=== PATIENT | male | born 1955 | race Caucasian/White ===

== ENCOUNTER 2019-04-09 12:38 | Outpatient (CLI) | payer MEDICARE, BC ==
--- NOTE | 2019-04-09 13:46 | MRI ---
CERVICAL SPINE MRI WITHOUT CONTRAST: DATE: 04/09/2019. COMPARISON: None. HISTORY: Neck pain and bilateral hand numbness. TECHNIQUE: Multiplanar multisequence MR imaging of cervical spine without contrast. FINDINGS: The sagittal STIR imaging demonstrates no focal area of osseous marrow edema. There is mild degenerative change at the atlantoaxial interspace. The craniocervical junction is inta ct. No prevertebral soft tissue abnormality. No anterolisthesis or retrolisthesis seen within the cervical spine. C2-3: Mild facet and uncovertebral osteophyte formation on the left with no significant central canal or neural foraminal stenosis. C3-4: There is disc space narrowing and disc desiccation with minimal disc bulge. Facet and uncoverte bral osteophyte formation on the left causes a moderate degree of left neural foraminal stenosis. No significant central canal or right neural foraminal stenosis. C4-5: Mild facet hypertrophy on the left. No significant central canal or neural foraminal stenosis. C5-6: There is disc space narrowing, disc desiccation, and minimal disc bulge with partial effacement of the fifth ventral thecal sac. No significant central canal or neural foraminal stenosis. C6-7: There is disc space narrowing and disc desiccation with degenerative endplate change. No signif icant central canal stenosis. Bilateral mild facet and uncovertebral osteophyte formation with mild bilateral neural foraminal stenosis. C7-T1: Minimal anterolisthesis noted measuring in the 2 mm range. Mild bilateral facet hypertrophy wi th mild bilateral neural foraminal stenosis. No significant central canal stenosis. No focal area of abnormal signal intensity identified within the cervical cord. IMPRESSION: Degenerative changes within the cervical spine as detailed above. Transcribed Date/Time: 04/09/2019 2:44 PM
== END 2019-04-09 12:39 | disposition home or self-care (01) ==
LOC: TBSIIMAG 12:38
PROVIDERS: ATTEND Neurological Surgery
DX: M54.2 Cervicalgia (principal); M47.812 Spondylosis without myelopathy or radiculopathy, cervical region
CPT/HCPCS: 72141

== ENCOUNTER 2019-07-15 10:34 | Outpatient (CLI) | payer MEDICARE, BC ==
[2019-07-15 10:52] LABS: Estimated GFR-MDRD - POC Greater than 90
--- NOTE | 2019-07-15 11:49 | CT ---
CT ABDOMEN AND PELVIS WITH IV CONTRAST: HISTORY: Abdominal pain and bloating. History of hernia repair. Pancytopenia. FINDINGS: ABDOMEN: The lung bases are clear. The liver and spleen show no focal abnormalities. The spleen is approximately 11.9 cm in length. The pancreas and gallbladder regions appear unremarkable. The right and left adrenal glands and the right and left kidneys are normal in size. There is no sign ificant periaortic or mesenteric adenopathy. PELVIS: The prostate is enlarged. I do not appreciate any significant pelvic lymphadenopathy or mass. The appendix region is normal. There are arthritic changes of the spine. IMPRESSION: 1. Enlarged prostate. 2. No acute findings of the abdomen or pelvis. POS: [facility]
[2019-07-15] MEDS ORDERED: Iopamidol-370 76% 500 ML 1 ML ONE (14:52)
== END 2019-07-15 10:35 | disposition home or self-care (01) ==
LOC: BICCT 10:34
PROVIDERS: ATTEND Internal Medicine Hematology & Oncology
DX: R10.9 Unspecified abdominal pain (principal); R14.0 Abdominal distension (gaseous); D61.818 Other pancytopenia; N40.0 Benign prostatic hyperplasia without lower urinary tract symptoms
CPT/HCPCS: 74177; 82565; Q9967

== ENCOUNTER 2020-01-10 08:47 | Day surgery (SDC) | payer MEDICARE, BC ==
[2020-01-07 15:16] VITALS: BMI 42.7
[2020-01-10 09:10] LABS: PTT 27.4 sec (22.9-36.1)
[2020-01-10 09:15] LABS: #Basophils 0.1 thou/uL (0.0-0.2); #Eosinphils 0.1 thou/uL (0.0-0.7); #Monocytes 0.4 thou/uL (0.11-0.59); #Neutrophils 3.9 thou/uL (1.40-6.50); %Basophils 0.9 % (0.0-1.0); %Eosinophils 1.4 % (0.0-10.0); %Lymphocytes 18.7 % (21.0-51.0); %Monocytes 8.1 % (0.0-10.0); Hemoglobin 15.2 g/dL (14.0-18.0); Mean Platelet Volume 8.9 fL (7.4-10.4); Platelet Count 81 thou/uL (130-400); RBC Distribution Width 12.3 % (11.5-14.5); Red Blood Cell (RBC) Count 4.59 mill/uL (4.70-6.10); White Blood Cell (WBC) Count 5.4 thou/uL (4.8-10.8)
[2020-01-10 11:00] VITALS: BP 166/99; TEMP 98.2
--- NOTE | 2020-01-10 12:13 | CT ---
CT GUIDED RIGHT ILIAC BONE MARROW ASPIRATION AND BIOPSY: CLINICAL HISTORY: Low white blood cell count. Thrombocytopenia.. PROCEDURE: The procedure including the risks and complications were explained to the patient, and informed conse nt was obtained. The patient was placed on the CT scan table in the prone position. Noncontrasted CT images were obtained through the pelvis. An area was marked overlying the RIGHT reina c bone, and the area was meticulously prepped and draped in usual sterile fashion. The skin and subcutaneous tissues were infiltrated with buffered 1% lidocaine for local anesthesia. After a small skin incision was made, an 11-gauge needle was advanced and positioning was confirmed w ith axial CT images. Approximately 10 milliliters of bone marrow aspirate was obtained. The needle was then further advanced, and a bone marrow biopsy was performed. The needle was removed, and hemost asis was achieved with direct pressure. The patient tolerated the procedure well and without immediate complication. The patient was transported to radiology nurses holding area for further uli toring prior to discharge. IMPRESSION: Technically successful percutaneous bone marrow aspiration and biopsy. Pathology results are pending.
== END 2020-01-10 12:15 | disposition home or self-care (01) ==
LOC: CT 08:47
PROVIDERS: ATTEND Internal Medicine Hematology & Oncology
PROC: 07DR3ZX Extraction of Iliac Bone Marrow, Percutaneous Approach, Diagnostic (ICD-10-PCS; principal; 2020-01-10)
DX: D72.819 Decreased white blood cell count, unspecified (principal); D69.6 Thrombocytopenia, unspecified; M10.9 Gout, unspecified; I10 Essential (primary) hypertension; I25.10 Atherosclerotic heart disease of native coronary artery without angina pectoris; E78.00 Pure hypercholesterolemia, unspecified; Z79.899 Other long term (current) drug therapy; Z95.5 Presence of coronary angioplasty implant and graft
CPT/HCPCS: 20225; 36415; 77012; 85025; 85097; 85610; 85730; 88184; 88237; 88264; 88280; 88305; 88311; 88313